=== PATIENT | female | born 1950 | race Asian ===

== ENCOUNTER → 2016-12-16 | Outpatient (CLI) | payer OTHER | LOC: RAD 09:08 | DX: Z12.31 Encounter for screening mammogram for malignant neoplasm of breast (principal) ==

== ENCOUNTER → 2017-01-27 | Outpatient (CLI) | payer OTHER | LOC: ULTRA 07:36 | DX: M85.89 Other specified disorders of bone density and structure, multiple sites (principal); N95.9 Unspecified menopausal and perimenopausal disorder; R10.2 Pelvic and perineal pain ==

== ENCOUNTER → 2017-03-02 | Outpatient (CLI) | payer OTHER ==
[2017-03-02 08:36] LABS: CREATININE 0.5 mg/dL (0.6-1.0)
== END ==
LOC: CAT 02-05 11:07
PROVIDERS: Family Medicine
DX: K80.20 Calculus of gallbladder without cholecystitis without obstruction (principal); K74.69 Other cirrhosis of liver; R10.2 Pelvic and perineal pain; R16.1 Splenomegaly, not elsewhere classified

== ENCOUNTER → 2017-07-15 | Outpatient (CLI) | payer OTHER | LOC: RAD 08:41 | DX: R05 Cough (principal) ==

== ENCOUNTER → 2017-12-14 | Outpatient (CLI) | payer OTHER | LOC: ULTRA 07:30 | DX: R10.11 Right upper quadrant pain (principal); R16.1 Splenomegaly, not elsewhere classified; K74.60 Unspecified cirrhosis of liver ==

== ENCOUNTER → 2018-01-13 | Outpatient (CLI) | payer OTHER ==
[~2018-01-13] VITALS: Ht 157.5 cm; Wt 74.8 kg
--- NOTE | ~2018-01-13 | PATH ---
[facility] [address] [place] [address] PATHOLOGY RPT PROCEDURE Name: INOCENTE THOMAS DEANNA Room #: REG BENJY Jimenez.#: [id number] Admission: 01/13/18 Date of : 48 Discharge: Report #: [id number] Path Case #: [id number] [facility] Accession Number: [id number] . 01 Material submitted: . LEFT LIVER LOBE 2 CORES . 01 Clinical history: . Cirrhosis . 02 Diagnosis: Liver, needle core biopsy: - Chronic hepatitis associated with bridging fibrosis, moderate mixed portal chronic inflammation including lymphoid aggregates as well as abundant plasma cells in addition to interlobular bile duct injury (Amy-Mic score: Grade 2-3/4, Stage 3/4) (IUV:brisa; 01/14/2018) QMS/01/14/2018 . 02 Comment: Examination shows markedly expanded portal tracts with abundant lymphocytes, few prominent lymphoid aggregates, abundant plasma cells as well as eosinophils. Interface activity is moderate with acidophil bodies present consistent with ongoing injury. Hepatocyte rosettes are identified in a few foci. Interlobular bile duct damage is present in many areas along with focal active cholangitis. There are no granulomata present. Florid duct lesions are not identified. Sclerosing bile duct lesions are not identified as well. Focal bile ductular proliferation is evident. Kristina-Denk bodies are present in a few zone 1 hepatocytes. There is no steatosis present. Spotty lobular inflammatory foci are identified. Zone 3 atrophy is not present. Hepatic veins are patent without any thrombi. Extensive bridging fibrosis is present in addition to regenerative atypia in a few zone 1 hepatocytes. . Trichrome special stain shows extensive periportal fibrosis associated with bridging fibrosis as well as focal nodule formation. Reticulin stain supports the same findings. Iron stain shows zone 3 granular 1+ iron as well as blush in a few zone 3 hepatocytes. PAS with and without diastase shows Kupffer cell macrophages and no intracytoplasmic globules in zone 1. . The findings in this liver biopsy tissue may be suggestive of autoimmune liver disease including cholangitis. Due to the presence of eosinophils, a drug-induced type of liver injury cannot be excluded. Due to the presence of cirrhosis, the etiology of the current inflammatory process cannot be identified purely based on histology. Correlation with autoimmune markers, a peripheral eosinophil count, patient's medication regime, and further evaluation of other findings is suggested. Please [address] [address] PATHOLOGY RPT PROCEDURE Name: INOCENTE THOMAS LA PLATA Room #: REG BENJY Travis#: [id number] Admission: 01/13/18 Date of : 48 Discharge: Report #: [id number] Path Case #: [id number] correlate clinically. (IUV:brisa; 01/14/2018) . 02 Electronically signed: . Nano Saldaña MD, Pathologist NPI- [id number] . 01 Gross description: . Received in formalin labeled "Akira Inocente, liver BX," are 2 descending needle cores of mitchell soft tissue measuring 1.9 and 2.3 cm in length and less than 0.1 cm in diameter. The specimen is submitted entirely in cassette A1. (TSD; 01/13/2018) TOB/TOB . 02 Pathologist provided ICD-10: K73.9, K74.0, K76.9 . 02 CPT . 628457, 077794, [id number], [id number], [id number], [id number] Performed at: 01 [facility] [address] [place] [address] [address] [place] [id number] MD Aram Pederson MD Phone: [phone] Performed at: [facility] [address] [place], [place] [id number] MD Nano Saldaña MD Phone: [phone]
[2018-01-13 08:19] VITALS: BP 157/59
[2018-01-13 08:37] LABS: HEMOGLOBIN 12.4 gm/dL (12.0-15.0); MCH 35.7 pg (26.0-34.0); MCHC 35.4 g/dL (28.0-37.0); MCV 100.8 fL (80.0-100.0); RBC 3.47 mil/uL (4.20-5.00); RDW 14.2 % (10.5-14.5); WBC 3.5 thou/uL (4.0-11.0)
[2018-01-13 08:44] LABS: CALCIUM 8.7 mg/dL (8.5-10.1); CREATININE 0.5 mg/dL (0.6-1.0)
[2018-01-13 08:51] LABS: INR 1.1; PROTIME 10.9 Seconds (9.3-11.4)
[2018-01-13 09:24] VITALS: BP 126/54
[2018-01-13 09:29] VITALS: BP 127/51
[2018-01-13 09:34] VITALS: BP 132/68
[2018-01-13 09:39] VITALS: BP 128/64
[2018-01-13 12:59] LABS: HEMATOCRIT 30.8 % (37.0-47.0); HEMOGLOBIN 10.9 gm/dL (12.0-15.0)
== END | disposition home or self-care (01) ==
LOC: ULTRA 07:55
PROVIDERS: Radiology Vascular & Interventional Radiology
DX: K73.8 Other chronic hepatitis, not elsewhere classified (principal); K74.60 Unspecified cirrhosis of liver

== ENCOUNTER → 2021-02-27 | Outpatient (CLI) | payer OTHER | LOC: BC 14:28 | PROVIDERS: ATTEND Family Medicine | DX: Z12.31 Encounter for screening mammogram for malignant neoplasm of breast (principal); N64.89 Other specified disorders of breast ==